=== PATIENT | female | born 1985 | race African-American/Black ===

== ENCOUNTER 2020-08-11 19:22 | Inpatient (IN) | payer BC ==
[~2020-08-11] VITALS: Ht 162.6 cm; Wt 114.6 kg
--- NOTE | 2020-08-11 19:53 | NUR ---
Dr. Quick at bedside for MSE.
[2020-08-11] MEDS ORDERED: DEXAMETHASONE SOD PHOSPHATE 4 MG INJ IV ONE (20:15)
[2020-08-11 20:19] LABS: HEMATOCRIT 36.2 % (31.2-41.9); MEAN CORPUSCULAR HEMOGLOBIN 26.2 uug (24.7-32.8); PLATELET COUNT (AUTO) 291 K/uL (179-408)
[2020-08-11] MEDS ORDERED: DEXAMETHASONE SOD PHOSPHATE 4 MG INJ ONE (20:19)
[2020-08-11 20:25] LABS: CREATININE 0.8 mg/dL (0.6-1.3)
[2020-08-11 20:31] LABS: BILIRUBIN,DIRECT 0.1 mg/dL (0.0-0.2); BILIRUBIN,TOTAL 0.3 mg/dL (0.2-1.0); TOTAL PROTEIN, SERUM 7.5 g/dL (6.4-8.2)
[2020-08-11] MEDS ORDERED: MAGNESIUM SULFATE/D5W 0 ML ONE (20:44)
--- NOTE | 2020-08-11 21:10 | NUR ---
Dr. Quick on panel call with Dr. Arnoldo Price. Patient accepted for admission to [facility], diagnosis: covid pneumonia.
[2020-08-11] MEDS ORDERED: ACETAMINOPHEN ES 500 MG TABLET ONE (21:11)
[2020-08-11] MEDS ORDERED: ACETAMINOPHEN ES 500 MG TABLET PO ONE (21:15)
[2020-08-11] MEDS ORDERED: ACETAMINOPHEN 325 MG TABLET PO ONE (21:15)
--- NOTE | 2020-08-11 21:32 | NUR ---
Xray at bedside.
[2020-08-11] MEDS ORDERED: ONDANSETRON 4 MG/2 ML VIAL IV PRN (22:00)
[2020-08-11] MEDS ORDERED: ACETAMINOPHEN 325 MG TABLET PO PRN (22:00)
[2020-08-11] MEDS ORDERED: MORPHINE SULFATE 2 MG/1 ML DISP.SYRIN IV PRN (22:00)
--- NOTE | 2020-08-11 22:10 | NUR ---
Report given Aundrea FLORES Tele.
--- NOTE | 2020-08-11 22:30 | NUR ---
RECEIVED PT FROM ER VIA WHEELCHAIR. UNDER THE CARE OF DR. MENDENHALL. DX: COVID PNA AND TELEMETRY. PT IN NO ACUTE DISTRESS. IV INTACT. PT ON AIRBORNE AND CONTACT ISOLATION FOR COVID. ASSISTED ASSESSMENT DONE. BELONGING LIST DONE. ADMISSION PROCESS AND CARE PLAN INITIATED.. SAFETY AND COMFORT PROVIDED. WILL CONTINUE TO MONITOR.
[2020-08-11] MEDS ORDERED: TEMAZEPAM 7.5 MG CAPSULE PO PRN (22:45)
[2020-08-11] MEDS ORDERED: AZITHROMYCIN 500 MG VIAL IV ONE (23:19)
[2020-08-11] MEDS ORDERED: CEFTRIAXONE /D5W 50ML IVPB **ER PYXIS IV ONE (23:20)
[2020-08-12] VITALS: BP 141/55
[2020-08-12] MEDS: AZITHROMYCIN IV 500 MG in IV DEXTROSE 5% 250 ML IV SCH ×2 (00:12→22:03)
[2020-08-12] MEDS: CEFTRIAXONE 1 G in IV DEXTROSE 5% 50 ML IV SCH ×2 (00:13→21:01)
[2020-08-12 04:00] VITALS: BP 137/81
[2020-08-12 04:05] LABS: *BILIRUBIN,URIN NEGATIVE (NEGATIVE); *BLOOD, URINE NEGATIVE (NEGATIVE); *CLARITY,URINE CLEAR (CLEAR); *COLOR,URINE YELLOW (YELLOW); *KETONES,URINE NEGATIVE (NEGATIVE); *URINE HCG, QUAL NEGATIVE (NEGATIVE); *UROBILINOGEN,URINE 0.2 E.U./dl (NORMAL); LEUKOCYTE ESTERASE ,URINE NEGATIVE (NEGATIVE); NITRITE, URINE NEGATIVE (NEGATIVE); PH,URINE 5.5 (5.0-8.0); UGLUCOSE 1+ (NEGATIVE)
[2020-08-12 04:10] LABS: BACTERIA,URINE MODERATE /HPF (NONE SEEN); RBC,URINE 0-3 /HPF (0-3); SQUAMOUS EPITHELIAL CELL,UR MODERATE /HPF (NONE SEEN); WBC,URINE 0-3 /HPF (0-3)
--- NOTE | 2020-08-12 05:30 | NUR ---
PT SLEPT INTERMITTENTLY. PT IN NO ACUTE DISTRESS.PT ON 3L NASAL CANNULA. PT VITAL SIGNS WITHIN NORMAL LIMIT. PRESCRIBED MEDICATION GIVEN AND PT TOLERATED IT WELL. SAFETY AND COMFORT PROVIDED. ALL NEEDS ARE MET. WILL ENDORSE TO INCOMING NURSE FOR CONTINUITY OF CARE.
[2020-08-12] MEDS: PANTOPRAZOLE SODIUM 40 MG TABLET.DR PO SCH (06:24)
[2020-08-12 06:37] LABS: HEMATOCRIT 36.1 % (31.2-41.9); MEAN CORPUSCULAR HEMOGLOBIN 26.3 uug (24.7-32.8); MEAN CORPUSCULAR VOLUME 79.1 fL (75.5-95.3); PLATELET COUNT (AUTO) 299 K/uL (179-408)
[2020-08-12 06:46] LABS: BILIRUBIN,TOTAL 0.3 mg/dL (0.2-1.0); CREATININE 0.7 mg/dL (0.6-1.3); MAGNESIUM 2.5 mg/dL (1.8-2.4); PHOSPHOROUS 3.4 mg/dL (2.5-4.9); TOTAL PROTEIN, SERUM 7.5 g/dL (6.4-8.2)
[2020-08-12 07:37] LABS: THYROID STIMULATING HORMONE 0.541 mIU/mL (0.358-3.740)
--- NOTE | 2020-08-12 08:00 | NUR ---
RECEIVED PATIENT AWAKE ALERT AND ORIENTED ON RESPIRATORY ISOLATION AND PRECAUTION AT THIS TIME ON O2 AT 3L/M BY NASAL CANULA WITH NO S/S OF SHORTNESS OF BREATH AT THIS TIME CALL LIGHTS AND PERSONAL BELONGINGS ARE WITHIN EASY REACH MADE COMFORTABLE WILL CONTINUE TO OBSERVE.
[2020-08-12] MEDS ORDERED: DEXAMETHASONE SOD PHOSPHATE 4 MG INJ IV SCH (09:00)
[2020-08-12] MEDS ORDERED: ALBUTEROL SULFATE 2.5 MG/3 ML NEBU NEB PRN (09:15)
--- NOTE | 2020-08-12 09:25 | NUR ---
DR KURTZ HERE TO SEE PATIENT AND STATED THAT HE WILL CHANGE THE DOSE OF HER STEROIDS STATED TO WAIT ON GIVING THE DUE 9AM DOSE PATIENT AWARE WAITING FOR THE NEW ORDERS.
[2020-08-12] MEDS: ENOXAPARIN SODIUM 40 MG/0.4 ML DISP.SYRIN SQ SCH (10:19)
[2020-08-12] MEDS: DEXAMETHASONE SOD PHOSPHATE 4 MG INJ IV SCH (10:21)
[2020-08-12 12:00] VITALS: BP 126/71
--- NOTE | 2020-08-12 12:30 | NUR ---
PATIENT SEEN AND EXAMINED BY RADHA THE HOSPITALIST WITH D/C PLANNING TODAY WILL RECHECK THE ORTHOSTATIC BLOOD PRESSURE THIS AFTERNOON AND PATIENT MAY BE DISCHARGED AFTER REVIEWING Addendum: 08/12/20 at 1449 by HERLINDA BRADFORD RN ERROR WRONG PATIENT
--- NOTE | 2020-08-12 12:31 | NUR ---
ERROR WRONG PATIENT WRONG CHART
[2020-08-12] MEDS ORDERED: REMDESIVIR (CHARGED) 200 MG in IV NORMAL SALINE 210 ML IV ONE (14:00)
[2020-08-12 14:38] VITALS: BP 139/76
--- NOTE | 2020-08-12 14:38 | NUR ---
REMDESIVIR STARTED ORDERED VITALS CHECKED AND RECORDED INSTRUCTIONS AND INFORMATION GIVEN TO PATIENT RE THIS DRUG SIDE EFFECTS ETC AND SHE AGREED TO CONTINUE TAKING IT ORDERED.
[2020-08-12 15:26] VITALS: BP 125/73
--- NOTE | 2020-08-12 15:48 | NUR ---
REMDESIVIR HAS JUST FINISHED INFUSED AND PATIENT CALLED THE NURSE AND STATED THAT SHE FEELS ITCHY AND I NOTED THAT SHE HAS REDNESS AND MULTIPLE RAISED AREAS ON BOTH UPPER EXTREMITY VITALS CHECKED AND RECORDED PHARMACY NOTIFIED
--- NOTE | 2020-08-12 17:33 | NUR ---
ALSO JUST NOTED SOME REDNESS ON PATIENT RIGHT BUTTOCKS CHEEK THE REDNESS ON BILATERAL UPPER EXTREMITIES AND THE RAISED AREAS ARE ALMOST GONE STATED NO ITCHING AT THIS TIME.
--- NOTE | 2020-08-12 18:56 | NUR ---
RESTING STATED REDNESS ALMOST RESOLVED RESTING IN BED AT THIS TIME.
[2020-08-12 20:11] VITALS: BP 130/74
[2020-08-12] MEDS: DOCUSATE SODIUM 100 MG CAPSULE PO SCH (21:01)
--- NOTE | 2020-08-12 21:14 | NUR ---
Patient in bed AALOx4 on O2 at 3LPM via NC saturating at 95%.Denies pain at this time .No s/s of distress noted. IV on left AC 20 patent and intact. Administered Iv ATB as ordered. No a/R noted.Patient ambulates to bathroom.VSS.Will continue to monitor.
[2020-08-13 00:17] VITALS: BP 133/71
--- NOTE | 2020-08-13 02:00 | NUR ---
Notify boat person regarding pt feel itchy on her back and requesting for medication. Josefa Zepeda OBGYN SPECIALIST ordered Benadryl 25 mg q6hprn po.
[2020-08-13 04:30] VITALS: BP 108/63
[2020-08-13] MEDS: PANTOPRAZOLE SODIUM 40 MG TABLET.DR PO SCH (06:05)
[2020-08-13 06:16] LABS: ABG BASE EXCESS 4.5 mmol/L; ABG HCO3 27.5 mmol/L; ABG PCO2 35.3 mmHg (35.0-45.0); ABG PO2 66.7 mmHg (75.0-100.0); ABG SITE RIGHT RADIAL; ABG TOTAL HEMOGLOBIN 11.6 G/dL (12.0-16.0); COHb 0.6 % (0.5-1.5); MetHb 0.3 % (0.0-1.5); O2Hb 92.8 % (94.0-97.0); VENT MODE Nasal Cannula
[2020-08-13 06:37] LABS: HEMATOCRIT 33.1 % (31.2-41.9); MEAN CORPUSCULAR HEMOGLOBIN 26.1 uug (24.7-32.8); MEAN CORPUSCULAR VOLUME 78.7 fL (75.5-95.3); PLATELET COUNT (AUTO) 379 K/uL (179-408)
[2020-08-13 06:50] LABS: BILIRUBIN,DIRECT 0.1 mg/dL (0.0-0.2); BILIRUBIN,TOTAL 0.4 mg/dL (0.2-1.0); CREATININE 0.8 mg/dL (0.6-1.3); POTASSIUM 3.6 mmol/L (3.5-5.1); TOTAL PROTEIN, SERUM 6.8 g/dL (6.4-8.2)
--- NOTE | 2020-08-13 07:39 | NUR ---
RECEIVED PATIENT RESTING BUT EASILY AROUSABLE. ON 3 LPM VIA NC TOLERATED. NO RESPIRATORY DISTRESS. DENIES PAIN. ASKED IF SHE STILL FEELS ITCHY BUT SHE DENIES IT. REFUSED TO SHOW ARMS AT THIS TIME SAYING SHE'S SLEEPY. SAFETY AND FALL PRECAUTIONS MAINTAINED. KEPT COMFORTABLE. WILL CONTINUE TO MONITOR.
--- NOTE | 2020-08-13 08:04 | NUR ---
DR. KURTZ HERE AND MADE AWARE OF PATIENT'S POSSIBLE ALLERGIC REACTION TO REMDESIVER YESTERDAY.
--- NOTE | 2020-08-13 08:52 | NUR ---
SEEN BY ANGIE RANGEL. MADE AWARE OF POSSIBLE REACTION TO REMDESIVER.
[2020-08-13] MEDS ORDERED: DEXAMETHASONE SOD PHOSPHATE 4 MG INJ IV SCH (09:00)
[2020-08-13] MEDS: ENOXAPARIN SODIUM 40 MG/0.4 ML DISP.SYRIN SQ SCH (09:11)
[2020-08-13] MEDS: DEXAMETHASONE SOD PHOSPHATE 4 MG INJ IV SCH (09:12)
[2020-08-13 12:00] VITALS: BP 117/64
--- NOTE | 2020-08-13 12:08 | NUR ---
PATIENT CALLED AND SAID SHE FEELS LIKE SHE'S NOT GETTING ENOUGH OXYGEN WHEN SHE WOKE UP FROM [place]. SPO2 NOTED 93% NO LABORED BREATHING. O2 INCREASED TO 4LPM, SPO2 94%. STATED SHE'S COMFORTABLE AT THIS SETTING. ALSO NOTED SHE WAS SCRATCHING HER ARMS. OFFERED BENADRYL BUT SHE REFUSED STATED IT'S OK FOR NOW BUT WILL CALL IF IT BECOMES UNBEARABLE. WILL CONTINUE TO MONITOR.
[2020-08-13 12:23] VITALS: BP 111/60
[2020-08-13] MEDS ORDERED: REMDESIVIR (CHARGED) 100 MG in IV NORMAL SALINE 100 ML IV SCH (14:00)
--- NOTE | 2020-08-13 15:00 | NUR ---
PATIENT IN BED, TALKING ON HER CELLPHONE. NO ACUTE DISTRESS. BREATHING EVENLY. SHE DENIES SOB OR DIFFICULTY BREATHING. DENIES ITCHINESS OR PAIN. SAFETY AND FALL PRECAUTIONS MAINTAINED. WILL CONTINUE TO MONITOR. SPO2 NOTED 94%.
[2020-08-13 16:00] VITALS: BP 122/74
--- NOTE | 2020-08-13 18:55 | NUR ---
PATIENT SITTING ON BED, NO ACUTE DISTRESS. DUE MEDS GIVEN AND TOLERATED. NEEDS ATTENDED. KEPT COMFORTABLE. ISOLATION MAINTAINED.
[2020-08-13 20:21] VITALS: BP 116/61
[2020-08-13] MEDS: DOCUSATE SODIUM 100 MG CAPSULE PO SCH (20:27)
[2020-08-13] MEDS ORDERED: CEFTRIAXONE 2 G in IV DEXTROSE 5% 100 ML IV SCH (21:00)
[2020-08-13] MEDS: AZITHROMYCIN IV 500 MG in IV DEXTROSE 5% 250 ML IV SCH (22:46)
[2020-08-14 00:15] VITALS: BP 121/71
[2020-08-14] MEDS: diphenhydrAMINE 25 MG CAP PO PRN ×3 (00:18→22:29)
--- NOTE | 2020-08-14 03:56 | NUR ---
pt resting well in between care; new midline g 18 to left upper arm placed by PICC LINE RN; c/o itching; Benadryl given; assisted with needs; continue to monitor; continue plan of care
[2020-08-14 04:21] VITALS: BP 121/68
[2020-08-14] MEDS: PANTOPRAZOLE SODIUM 40 MG TABLET.DR PO SCH (06:08)
[2020-08-14 06:51] LABS: HEMATOCRIT 34.7 % (31.2-41.9); MEAN CORPUSCULAR HEMOGLOBIN 26.3 uug (24.7-32.8); MEAN CORPUSCULAR VOLUME 80.3 fL (75.5-95.3); PLATELET COUNT (AUTO) 447 K/uL (179-408)
--- NOTE | 2020-08-14 06:53 | NUR ---
pt c/o itching 2x after zithromax, benadryl given and referred to pig iron loader; Josefa Zepeda ELEVATOR OPERATOR ordered to dc zithromax iv
[2020-08-14 07:15] LABS: CREATININE 0.8 mg/dL (0.6-1.3); MAGNESIUM 2.5 mg/dL (1.8-2.4); PHOSPHOROUS 3.4 mg/dL (2.5-4.9); POTASSIUM 3.6 mmol/L (3.5-5.1)
--- NOTE | 2020-08-14 08:00 | NUR ---
AWAKE ALERT AND ORIENTED X3, RESTING COMFORTABLY WITH 3L O2 VIA NC. AFEBRILE. SR ON MONITOR
[2020-08-14] MEDS: DEXAMETHASONE SOD PHOSPHATE 4 MG INJ IV SCH (09:26)
[2020-08-14] MEDS: ENOXAPARIN SODIUM 40 MG/0.4 ML DISP.SYRIN SQ SCH (09:27)
[2020-08-14 11:49] VITALS: BP 121/64
--- NOTE | 2020-08-14 12:05 | NUR ---
RESTING COMFORTABLY NO SS OF PAIN OR SOB. SEEN BY DR KURTZ SEE NOTES
[2020-08-14] MEDS ORDERED: diphenhydrAMINE 25 MG CAP PO PRN (13:30)
[2020-08-14 16:00] VITALS: BP 121/61
[2020-08-14 20:00] VITALS: BP 119/67
[2020-08-14] MEDS: DOCUSATE SODIUM 100 MG CAPSULE PO SCH (21:37)
[2020-08-15] VITALS (7 sets, daily range): BP systolic 107–131; BP diastolic 54–78
[2020-08-15] MEDS: diphenhydrAMINE 25 MG CAP PO PRN (04:40)
--- NOTE | 2020-08-15 04:41 | NUR ---
Benadryl PO give x2 during the night for complaints of itching. Remains AxO x4, able to make needs known. On 2L NC with O2 sats up to 95%. NSR on monitor, no acute distress noted. Pt able to ambulate out of bed with steady gait. Minimal SOB upon exertion. All needs attended. VSS, afebrile. Call light within reach.
[2020-08-15] MEDS: PANTOPRAZOLE SODIUM 40 MG TABLET.DR PO SCH (05:37)
[2020-08-15 06:30] LABS: HEMATOCRIT 33.7 % (31.2-41.9); MEAN CORPUSCULAR HEMOGLOBIN 25.9 uug (24.7-32.8); MEAN CORPUSCULAR VOLUME 80.8 fL (75.5-95.3); PLATELET COUNT (AUTO) 435 K/uL (179-408)
[2020-08-15 06:48] LABS: ALANINE AMINOTRANSFERASE 134 U/L (14-59); ALKALINE PHOSPHATASE 59 U/L (50-136); ASPARTATE AMINOTRANSFERASE 54 U/L (15-37); BILIRUBIN,DIRECT 0.1 mg/dL (0.0-0.2); BILIRUBIN,TOTAL 0.3 mg/dL (0.2-1.0); CARBON DIOXIDE 31 mmol/L (21-32); CHLORIDE 103 mmol/L (98-107); CREATININE 0.6 mg/dL (0.6-1.3); GLUCOSE 92 mg/dL (74-106); MAGNESIUM 2.5 mg/dL (1.8-2.4); PHOSPHOROUS 3.7 mg/dL (2.5-4.9); POTASSIUM 3.4 mmol/L (3.5-5.1); TOTAL PROTEIN, SERUM 6.4 g/dL (6.4-8.2); UREA NITROGEN, BLOOD 16 mg/dL (7-18)
--- NOTE | 2020-08-15 07:20 | NUR ---
Received pt. in bed resting comfortable, no c/of pain on 2LNC. vitals stable. Patient updated on care plan for today awaiting to be seen by attending Md. Will continue with care plan.
[2020-08-15] MEDS: DEXAMETHASONE SOD PHOSPHATE 4 MG INJ IV SCH (08:18)
[2020-08-15] MEDS: ENOXAPARIN SODIUM 40 MG/0.4 ML DISP.SYRIN SQ SCH (08:19)
[2020-08-15] MEDS ORDERED: POTASSIUM CHLORIDE 20 MEQ TAB.PRT.SR PO SCH (09:30)
[2020-08-15 15:36] LABS: EOSINOPHILS % (MANUAL) 1 % (0-8); LYMPHOCYTES % (MANUAL) 25 % (20-40); MONOCYTES % (MANUAL) 13 % (2-10); NEUTROPHILS % (MANUAL) 61 % (42-75)
--- NOTE | 2020-08-15 16:38 | NUR ---
hands off report given to rn. Burris
[2020-08-15] MEDS: DOCUSATE SODIUM 100 MG CAPSULE PO SCH (20:47)
[2020-08-16 00:11] VITALS: BP 123/60
[2020-08-16 04:29] VITALS: BP 119/56
[2020-08-16] MEDS: diphenhydrAMINE 25 MG CAP PO PRN (04:31)
--- NOTE | 2020-08-16 05:29 | NUR ---
Pt slept intermittently throughout the night. Denies SOB or chest pain. Titrated to 1.5L NC, tolerating well. Requested PO Benadryl for itching, tolerated well. Safety and comfort provided. Covid-[address] No other issues or concerns at this time, will endorse to day shift.
[2020-08-16] MEDS: PANTOPRAZOLE SODIUM 40 MG TABLET.DR PO SCH (06:30)
[2020-08-16 06:55] LABS: HEMATOCRIT 35.1 % (31.2-41.9); MEAN CORPUSCULAR HEMOGLOBIN 25.5 uug (24.7-32.8); MEAN CORPUSCULAR VOLUME 80.9 fL (75.5-95.3); PLATELET COUNT (AUTO) 509 K/uL (179-408)
--- NOTE | 2020-08-16 07:15 | NUR ---
received patient in bed sleeping in stable condition, no SOB, pain or discomfort noted at this time. call light within reach. will continue to monitor.
[2020-08-16 07:19] LABS: CREATININE 0.7 mg/dL (0.6-1.3); POTASSIUM 3.7 mmol/L (3.5-5.1)
[2020-08-16 08:00] VITALS: BP 126/63
[2020-08-16] MEDS: ENOXAPARIN SODIUM 40 MG/0.4 ML DISP.SYRIN SQ SCH (08:32)
[2020-08-16] MEDS: DEXAMETHASONE SOD PHOSPHATE 4 MG INJ IV SCH (08:35)
--- NOTE | 2020-08-16 10:00 | NUR ---
patient on room air saturation per doctors order, patient sat at this time 95%.
[2020-08-16 12:00] VITALS: BP 132/68
[2020-08-16] MEDS ORDERED: PRED20TA PO (12:25)
--- NOTE | 2020-08-16 12:43 | NUR ---
patient with discharge orders carried out, patient stable with saturation at 95%.
--- NOTE | 2020-08-16 13:20 | NUR ---
patient discharged, discharge instructions given to patient. patient taken to front lobby via wheelchair. patient left via private car.
[2020-08-16 16:36] LABS: NEUTROPHILS % (MANUAL) 72 % (42-75)
[2020-08-16 16:37] LABS: BAND % (MANUAL) 0 % (0-10); LYMPHOCYTES % (MANUAL) 22 % (20-40); MONOCYTES % (MANUAL) 6 % (2-10)
== END 2020-08-16 13:53 | disposition home or self-care (01) | DRG 177 ==
LOC: ER 19:24 → TELE3 22:29
PROVIDERS: ADMIT Registered Nurse; ATTEND Nurse Practitioner Family
PROC: XW033E5 Introduction of Remdesivir Anti-infective into Peripheral Vein, Percutaneous Approach, New Technology Group 5 (ICD-10-PCS; principal; 2020-08-12)
PROC: 05H633Z Insertion of Infusion Device into Left Subclavian Vein, Percutaneous Approach (ICD-10-PCS; 2020-08-13)
PROC: B547ZZA Ultrasonography of Left Subclavian Vein, Guidance (ICD-10-PCS; 2020-08-13)
DX: U07.1 COVID-19 (principal); J12.82 Pneumonia due to coronavirus disease 2019; J96.01 Acute respiratory failure with hypoxia; Z68.41 Body mass index [BMI] 40.0-44.9, adult; L27.0 Generalized skin eruption due to drugs and medicaments taken internally; E66.01 Morbid (severe) obesity due to excess calories; F17.200 Nicotine dependence, unspecified, uncomplicated; Z91.09 Other allergy status, other than to drugs and biological substances; R74.01 Elevation of levels of liver transaminase levels; T38.0X5A Adverse effect of glucocorticoids and synthetic analogues, initial encounter; D72.828 Other elevated white blood cell count; T36.3X5A Adverse effect of macrolides, initial encounter; T37.5X5A Adverse effect of antiviral drugs, initial encounter; Y92.230 Patient room in hospital as the place of occurrence of the external cause
CPT/HCPCS: 36415; 36600; 70030-TC; 71045; 83615; 83735; 84100; 84443; 84703; 85025; 85730; 86140; 87086; 93005; A4663; A9150; G0378; J0456; J0696; J1100; J1650; J3475; J3490; J7040; J7050; J7060; Q0163; U0003

== ENCOUNTER 2020-09-07 14:11 | Emergency (ER) | payer BC ==
[~2020-09-07] VITALS: Ht 162.6 cm; Wt 114.8 kg
[~2020-09-07 14:11] MED LIST: PRED20TA PO
--- NOTE | 2020-09-07 15:22 | NUR ---
Gave pt d/c instructions, pt verbalized understanding.
== END 2020-09-07 15:32 | disposition home or self-care (01) ==
LOC: ER 14:11
DX: R14.0 Abdominal distension (gaseous) (principal); Z86.16 Personal history of COVID-19; Z87.01 Personal history of pneumonia (recurrent); Z88.1 Allergy status to other antibiotic agents; Z88.8 Allergy status to other drugs, medicaments and biological substances; R03.0 Elevated blood-pressure reading, without diagnosis of hypertension
CPT/HCPCS: A4663

== ENCOUNTER 2020-11-03 21:06 | Emergency (ER) | payer BC ==
[~2020-11-03] VITALS: Ht 162.6 cm; Wt 122.5 kg
[2020-11-03] MEDS ORDERED: TETRACAINE HCL 0.5% OPHT DROP 2 ML BOTTLE ONE (21:27)
[2020-11-03] MEDS ORDERED: FLUORESCEIN SODIUM 1 MG STRIP ONE (21:27)
--- NOTE | 2020-11-03 21:28 | NUR ---
Dr. Quick at bedside for MSE.
[2020-11-03] MEDS ORDERED: SULF15DR6 EACHEYE (21:44)
[2020-11-03] MEDS ORDERED: OXYC-128 PO (21:44)
[2020-11-03] MEDS ORDERED: TDAP DIPH,PERTUSS,TET VAC/PF 0.5 ML DISP.SYRIN IM ONE ×2 (21:45)
[2020-11-03] MEDS ORDERED: OXYCODONE/APAP 5-325 MG TABLET PO ONE (21:45)
[2020-11-03] MEDS ORDERED: OXYCODONE/APAP 5-325 MG TABLET ONE (21:46)
--- NOTE | 2020-11-03 21:56 | NUR ---
Patient discharged to home in stable condition. Written and verbal after care instructions given. Patient verbalizes understanding of instructions. Stressed follow up or return to ER for worsening s/s. Pt is being driven home by family. All belongings taken.
[2020-11-03 21:57] VITALS: BP 129/85
== END 2020-11-03 22:09 | disposition home or self-care (01) ==
LOC: ER 21:09
DX: S05.02XA Injury of conjunctiva and corneal abrasion without foreign body, left eye, initial encounter (principal); S05.01XA Injury of conjunctiva and corneal abrasion without foreign body, right eye, initial encounter; X58.XXXA Exposure to other specified factors, initial encounter; Y93.89 Activity, other specified; Y92.89 Other specified places as the place of occurrence of the external cause; Z88.1 Allergy status to other antibiotic agents; Z88.8 Allergy status to other drugs, medicaments and biological substances; Z86.16 Personal history of COVID-19
CPT/HCPCS: 90715; A4663

== ENCOUNTER 2023-07-20 22:20 | Emergency (ER) | payer BC ==
[~2023-07-20] VITALS: Ht 162.6 cm; Wt 108.9 kg
[~2023-07-20 22:20] MED LIST changes: +OXYC-128 PO; +SULF15DR6 EACHEYE
[2023-07-20 23:23] LABS: BASOPHILS # (AUTO) 0.1 K/UL (0.0-0.2); BASOPHILS % (AUTO) 0.6 % (0.0-2.0); EOSINOPHILS # (AUTO) 0.5 K/uL (0.0-0.7); HEMATOCRIT 36.6 % (31.2-41.9); HEMOGLOBIN 11.8 g/dL (10.9-14.3); LYMPHOCYTES # (AUTO) 0.8 K/uL (0.8-4.8); LYMPHOCYTES % (AUTO) 8.4 % (20.5-51.5); MEAN CORPUSCULAR HEMOGLOBIN 26.9 uug (24.7-32.8); MEAN CORPUSCULAR HGB CONC 32 g/dL (32.3-35.6); MEAN CORPUSCULAR VOLUME 83.1 fL (75.5-95.3); MONOCYTES # (AUTO) 0.2 K/uL (0.1-1.30); MONOCYTES % (AUTO) 2.6 % (0.0-11.0); NEUTROPHILS # (AUTO) 7.4 K/uL (1.8-8.9); NEUTROPHILS % (AUTO) 82.4 % (38.5-71.5); PLATELET COUNT (AUTO) 314 K/uL (179-408); RED CELL DISTRIBUTION WIDTH 15.2 % (12.3-17.7)
[2023-07-20 23:24] LABS: DIFFERENTIAL COMMENT 1
[2023-07-20 23:31] LABS: CALCIUM 8.7 mg/dL (8.5-10.1); CREATININE 0.8 mg/dL (0.6-1.3); POTASSIUM 4.1 mmol/L (3.5-5.1)
[2023-07-20 23:37] LABS: BILIRUBIN,TOTAL 0.3 mg/dL (0.2-1.0); TOTAL PROTEIN, SERUM 6.8 g/dL (6.4-8.2)
[2023-07-21 04:12] VITALS: BP 124/96; TEMP 98; O2SAT 97
== END 2023-07-21 04:13 | disposition home or self-care (01) ==
LOC: ER 22:23
DX: T79.7XXA Traumatic subcutaneous emphysema, initial encounter (principal); R22.1 Localized swelling, mass and lump, neck; R22.2 Localized swelling, mass and lump, trunk; Z79.899 Other long term (current) drug therapy; Z98.890 Other specified postprocedural states; Z88.1 Allergy status to other antibiotic agents; X58.XXXA Exposure to other specified factors, initial encounter; Y93.89 Activity, other specified; Y92.89 Other specified places as the place of occurrence of the external cause; Y99.8 Other external cause status
CPT/HCPCS: 36415; 70490; 71250; 85025; 85610; 86140; A4606; A4663